=== PATIENT | male | born 1985 | race Caucasian/White ===

== ENCOUNTER 2019-01-04 08:18 | Emergency (ER) | payer MEDICAID, OTHER ==
[~2019-01-04] VITALS: Ht 190.5 cm; Wt 113.6 kg
[2019-01-04] MEDS ORDERED: HYDROmorphONE 1 MG/ML SYG IV STA (08:27)
[2019-01-04] MEDS ORDERED: SOD CHLORIDE 0.9% 1,000 ML IV STA (08:27)
[2019-01-04] MEDS ORDERED: ONDANSETRON 4 MG INJ IV STA (08:27)
[2019-01-04] MEDS ORDERED: LORAZEPAM 2 MG INJ IV ONE (08:30)
--- NOTE | 2019-01-04 08:40 | ERD ---
ER Documentation Chief Complaint Chief Complaint Left testicle pain HPI 33-year-old male who presents with 2 days of left testicle pain. The patient is a very difficult and limited historian. He is mainly saying "Fuck you, don't fucking touch me you fucking asshole". Patient cannot clearly articulate any issues. He is just describing significant body pain related to a left testicle that has been painful for 2 days. Remainder of HPI is very limited. ROS All systems reviewed and are negative except as per history of present illness. Medications Home Meds Active Scripts Ibuprofen* (Motrin*) 800 Mg Tab, 800 MG PO Q6H PRN for PAIN AND OR ELEVATED TEMP, #30 TAB Prov:MELISSA MULLER MD 01/04/19 Ondansetron (Ondansetron Odt) 4 Mg Tab.rapdis, 4 MG PO Q6H PRN for NAUSEA AND/OR VOMITING, #10 TAB Prov:MELISSA MULLER MD 01/04/19 Hydrocodone/Acetaminophen (Lyman 10-325 Tablet) 1 Each Tablet, 1 TAB PO Q6H PRN for PAIN, #7 TAB Prov:MELISSA MULLER MD 01/04/19 Doxycycline Hyclate* (Doxycycline Hyclate*) 100 Mg Tablet.dr, 100 MG PO BID for 10 Days, TAB Prov:MELISSA MULLER MD 01/04/19 Allergies Allergies: Coded Allergies: No Known Allergy (Unverified , 01/04/19) PMhx/Soc History of Surgery: No Anesthesia Reaction: No Hx Neurological Disorder: No Hx Respiratory Disorders: No Hx Cardiac Disorders: No Hx Psychiatric Problems: No Hx Miscellaneous Medical Probl: No Hx Alcohol Use: Yes Hx Substance Use: No Hx Tobacco Use: Yes FmHx Family History: No diabetes Physical Exam Vitals Vital Signs Date Temp Pulse Resp B/P (MAP) Pulse Ox O2 O2 Flow FiO2 Time Delivery Rate 01/04/19 71 19 123/74 100 Room Air 11:02 (90) 01/04/19 98.0 108 24 130/76 100 08:57 (94) Physical Exam General: Yelling, screaming profanity Head: Normocephalic, atraumatic. Eyes: Pupils equally reactive, EOM intact ENT: Moist mucous membranes Neck: Supple, no lymphadenopathy Respiratory: Lungs clear bilaterally, no distress Cardiovascular: RRR, no murmurs, rubs, or gallops Abdominal: Soft, non-tender, non-distended, no peritoneal signs : Uncircumcised male. Right testicle is normal size. Left testicle is double or triple in size, diffusely tender, unable to assess reflexes. MSK: No edema, no unilateral swelling, 5/5 strength Neurologic: Alert and oriented, moving all extremities, normal speech, no focal weakness, no cerebellar signs Skin: No rash Psych: Agitated Result Diagram: 01/04/19 0843 01/04/19 0843 Results 24 hrs Laboratory Tests Test 01/04/19 08:43 01/04/19 10:57 White Blood Count 22.9 10^3/ul Red Blood Count 5.03 10^6/ul Hemoglobin 14.7 g/dl Hematocrit 42.1 % Mean Corpuscular Volume 83.7 fl Mean Corpuscular Hemoglobin 29.2 pg Mean Corpuscular Hemoglobin Concent 34.9 g/dl Red Cell Distribution Width 12.3 % Platelet Count 225 10^3/UL Mean Platelet Volume 10.2 fl Immature Granulocytes % 1.300 % Neutrophils % 81.0 % Lymphocytes % 8.7 % Monocytes % 8.2 % Eosinophils % 0.4 % Basophils % 0.4 % Nucleated Red Blood Cells % 0.0 /100WBC Immature Granulocytes # 0.290 10^3/ul Neutrophils # 18.5 10^3/ul Lymphocytes # 2.0 10^3/ul Monocytes # 1.9 10^3/ul Eosinophils # 0.1 10^3/ul Basophils # 0.1 10^3/ul Nucleated Red Blood Cells # 0.0 10^3/ul Prothrombin Time 11.6 Sec Prothrombin Time Ratio 0.9 INR International Normalized Ratio 0.84 Activated Partial Thromboplast Time 26.3 Sec Sodium Level 139 mmol/L Potassium Level 3.9 mmol/L Chloride Level 106 mmol/L Carbon Dioxide Level 21 mmol/L Anion Gap 12 Blood Urea Nitrogen 13 mg/dl Creatinine 0.60 mg/dl Est Glomerular Filtrat Rate mL/min > 60 mL/min Glucose Level 119 mg/dl Calcium Level 8.9 mg/dl Urine Color YELLOW Urine Clarity CLEAR Urine pH 5.0 Urine Specific [place] 1.017 Urine Ketones NEGATIVE mg/dL Urine Nitrite NEGATIVE mg/dL Urine Bilirubin NEGATIVE mg/dL Urine Urobilinogen NEGATIVE mg/dL Urine Leukocyte Esterase NEGATIVE Aashish/ul Urine Microscopic RBC 2 /HPF Urine Microscopic WBC 9 /HPF Urine Mucus FEW /HPF Urine Hemoglobin 2+ mg/dL Urine Glucose NEGATIVE mg/dL Urine Total Protein NEGATIVE mg/dl Current Medications Medications Dose Sig/Gigi Start Time Status Last (Trade) Ordered Route PRN Stop Time Admin Dose Reason Admin Sodium 1,000 ml @ Q1H STAT 01/04/19 DC 01/04/19 Chloride 1,000 mls/hr IV 08:27 01/04/19 08:32 09:26 1 mg ONCE STAT 01/04/19 DC 01/04/19 Hydromorphone IV 08:27 01/04/19 08:32 HCl 08:28 (Dilaudid) Ondansetron 4 mg ONCE STAT 01/04/19 DC 01/04/19 HCl (Zofran IV 08:27 01/04/19 08:32 Inj) 08:29 Lorazepam 1 mg ONCE ONCE 01/04/19 DC 01/04/19 (Ativan) IV 08:30 01/04/19 08:32 08:31 Ceftriaxone 250 mg ONCE ONCE 01/04/19 Sodium IM 11:30 01/04/19 (Rocephin) 11:31 Doxycycline 100 mg ONCE ONCE 01/04/19 Hyclate PO 11:30 01/04/19 (Vibramycin) 11:31 Procedures/MDM EKG, MONITORS, & DIAGNOSTIC IMAGING: Ultrasound scrotum: IMPRESSION: 1. No sonographic evidence for testicular torsion. 2. Left-sided hydrocele. 3. Mildly enlarged heterogeneous left epididymis which may be secondary to epididymitis. Clinical correlation is necessary. LAB INTERPRETATION: I reviewed the laboratory testing and it shows WBC elevation MEDICAL DECISION MAKING: Patient presents with 2 days of a painful swollen left testicle. Given 2 days of symptoms it would seem this could be more consistent with epididymitis and orchitis however given the swelling and focal tenderness and pain out of proportion this raises a concern for testicular torsion. A stat ultrasound will be ordered. It should be noted that the patient is a very difficult patient. He is yelling and screaming profanity at myself and the staff. He is extremely hesitant to receive a physical exam. This is delaying his care. ER COURSE: * The patient's pain is dramatically improved with pain medication and anxioly sis * Ultrasound is confirming epididymitis. There is good flow to the testicle. This is not consistent with testicular torsion. This fits the clinical picture of several days of symptoms. * Based on the clinical exam this is most likely consistent with acute epididymoorchitis. The patient cannot provide sexual history, empiric coverage for gonorrhea and chlamydia would be reasonable. * Patient given ceftriaxone, doxycycline will be discharged on 10 days of doxycycline. Pain control medication and outpatient urology follow-up. CONSULTATION: None DISPOSITION PLAN: The patient does not have an identifiable emergent medical condition that warrants inpatient hospitalization at this time. The patient is deemed safe for discharge with outpatient follow-up. We discussed follow up with the patient's primary care doctor within 24 to 48 hours as needed. We also discussed return to the emergency room for worsening symptoms or worsening condition. Outpatient referral: Urology Discharge Medications: Lyman, Zofran, Motrin, Doxy NARCOTIC MEDICATION: The patient has been prescribed a narcotic medication during this encounter. The patient has been warned about the use of narcotics. The patient should not drive or operate heavy machinery while taking this medication. The patient was also warned about the addictive properties of narcotic medications. Narcan prescription was NOT provided given the following criteria: 1. No more than 5 tablets of Lyman 10 mg or 10 tablets of Lyman 5 mg were prescribed. 2. Concomitant opiate and benzodiazepine prescriptions were not provided. 3. There is no obvious evidence of prior history of opiate abuse or overdose. Departure Diagnosis: Primary Impression: Left epididymitis Condition: MELISSA Dawson MD Jan 04, 2019 08:40
[2019-01-04 08:57] VITALS: Ht 190.5 cm; Wt 113.6 kg
[2019-01-04] MEDS ORDERED: DOXY100T20 PO (11:08)
[2019-01-04] MEDS ORDERED: IBUP800T48 PO (11:08)
[2019-01-04] MEDS ORDERED: ONDA4TAB14 PO (11:08)
[2019-01-04] MEDS ORDERED: HYDR-3980 PO (11:08)
[2019-01-04] MEDS ORDERED: CEFTRIAXONE 250 MG INJ IM ONE (11:30)
[2019-01-04] MEDS ORDERED: DOXYCYCLINE 100 MG TAB PO ONE (11:30)
[2019-01-04 12:09] VITALS: BP 121/69; PULSE 69; RESP 20
== END 2019-01-04 12:22 | disposition home or self-care (01) ==
LOC: E/R 08:18
DX: N45.1 Epididymitis (principal); Z87.891 Personal history of nicotine dependence
CPT/HCPCS: 76870; 80048; 81001; 85025; 85610; 85730; J0696; J1170; J2060; J2405; J7030; Z7610; 36415; 96372; 96374; 96375